=== PATIENT | female | born 1940 | race Two or more races ===

== ENCOUNTER 2021-10-09 22:23 | Emergency (ER) | payer OTHER ==
[~2021-10-09] VITALS: Ht 165.1 cm; Wt 68.0 kg
[2021-10-09 22:30] VITALS: BP 149/71
[2021-10-09] MEDS ORDERED: ACCU-CHEK COMFORT CURVE STRIP VI ONE (22:45)
[2021-10-09 23:37] LABS: Basophils # (auto) 0.1 10 ^3/uL (0-0.2); Basophils % (auto) 0.7 % (0.0-2.0); Eosinophils # (auto) 0.1 10 ^3/uL (0-0.8); Eosinophils % (auto) 0.7 % (0.0-7.0); Hematocrit 37.5 % (41.0-53.0); Hemoglobin 12.7 g/dL (13.5-17.5); Lymphocytes # (auto) 1.8 10 ^3/uL (0.4-5.4); Lymphocytes % (auto) 17.5 % (10.0-50.0); Mean Corpuscular Hemoglobin 29.9 pg (28.0-32.0); Mean Corpuscular Hgb Conc. 33.9 g/dL (32.0-36.0); Mean Corpuscular Volume 88.2 fL (80.0-100.0); Monocytes # (auto) 0.6 10 ^3/uL (0-1.3); Monocytes % (auto) 5.9 % (0.0-12.0); Neutrophils # (auto) 7.7 10 ^3/uL (1.6-8.6); Neutrophils % (auto) 75.2 % (37.0-80.0); Red Blood Cells 4.25 10^6/uL (4.5-5.90); Red Cell Distribution Width 16.2 % (11.8-14.3); White Blood Cell 10.2 10^3/uL (4.4-10.8)
[2021-10-09 23:56] LABS: Albumin 3.4 g/dL (3.4-5.0); Calcium 9.8 mg/dL (8.5-10.1); Potassium 4.3 mmol/L (3.5-5.1)
[2021-10-10 00:05] LABS: Lactic Acid w/Reflex 2.5 mmol/L (0.4-2.0)
[2021-10-10 00:13] LABS: BUN/Creatinine Ratio 11.1; Bilirubin, Total 0.4 mg/dL (0.2-1.0)
== END 2021-10-10 00:52 | disposition left against medical advice (07) ==
LOC: EDBD 22:23 → ER 22:27 → EDSEX 22:27 → ER 10-10 00:52
DX: R53.1 Weakness (principal); R42 Dizziness and giddiness; E11.9 Type 2 diabetes mellitus without complications; I10 Essential (primary) hypertension
CPT/HCPCS: 36415; 80053; 83605; 83880; 84484; 85025; 87040

== ENCOUNTER 2021-10-22 12:03 | Inpatient (IN) | payer OTHER ==
[~2021-10-22] VITALS: Ht 165.1 cm; Wt 63.7 kg
[2021-10-22] MEDS ORDERED: SODIUM CHLORIDE 0.9% 1,000 ML IV ONE (13:45)
[2021-10-22 14:12] LABS: Basophils # (auto) 0.1 10 ^3/uL (0-0.2); Basophils % (auto) 0.6 % (0.0-2.0); Eosinophils # (auto) 0 10 ^3/uL (0-0.8); Eosinophils % (auto) 0.2 % (0.0-7.0); Hematocrit 42.2 % (36.0-46.0); Hemoglobin 13.8 g/dL (12.2-16.2); Lymphocytes # (auto) 2.7 10 ^3/uL (0.4-5.4); Lymphocytes % (auto) 18.2 % (10.0-50.0); Mean Corpuscular Hemoglobin 28.7 pg (28.0-32.0); Mean Corpuscular Hgb Conc. 32.6 g/dL (32.0-36.0); Monocytes # (auto) 0.9 10 ^3/uL (0-1.3); Monocytes % (auto) 6.1 % (0.0-12.0); Neutrophils # (auto) 10.9 10 ^3/uL (1.6-8.6); Neutrophils % (auto) 74.9 % (37.0-80.0); Nucleated Red Blood Cells % 0.1 %; Red Cell Distribution Width 15.3 % (11.8-14.3); White Blood Cell 14.6 10^3/uL (4.4-10.8)
[2021-10-22 14:18] LABS: Urine Bacteria FEW /hpf (None Seen); Urine Blood Negative /uL (Negative); Urine Specific Gravity 1.017 (1.001-1.035); Urine WBC 1 /hpf (0 - 5)
[2021-10-22 14:25] LABS: Albumin 3.5 g/dL (3.4-5.0); Calcium 10.2 mg/dL (8.5-10.1); Potassium 4.9 mmol/L (3.5-5.1)
[2021-10-22 14:32] LABS: BUN/Creatinine Ratio 22.7; Bilirubin, Total 0.5 mg/dL (0.2-1.0); Total Protein 9.8 g/dL (6.4-8.2)
[2021-10-22] MEDS ORDERED: DexAMETHasone SOD PHOS 10MG/1ML VIAL INJ IV ONE (14:45)
[2021-10-22] MEDS ORDERED: AZITHROMYCIN 500MG/ 250ML 250 ML IV ONE (14:45)
[2021-10-22] MEDS ORDERED: cefTRIAXone 1GM/50ML D5W 50 ML IV ONE (14:45)
[2021-10-22] MEDS: MAGNESIUM SULFATE 1GM/100ML 100 ML IV SCH ×2 (18:01→18:28)
[2021-10-22] MEDS ORDERED: ACETAMINOPHEN 325 MG TAB PO PRN (18:45)
[2021-10-22] MEDS ORDERED: ALUM & MAG HYDROX-SIMETH LIQ(MAALOX) 30 ML PO PRN (18:45)
[2021-10-22] MEDS ORDERED: NITROGLYCERIN 0.4 MG SL TAB SL PRN (18:45)
[2021-10-22] MEDS ORDERED: MORPHINE SULFATE INJECTION 2 MG/ML SYRG IV PRN (18:45)
[2021-10-22] MEDS ORDERED: DOCUSATE SOD 100 MG CAP PO PRN (18:45)
[2021-10-22] MEDS ORDERED: DEXTROSE (50%) 50ML SYRG IV PRN (19:00)
[2021-10-22] MEDS: SOD CHL 0.45% 1,000 ML IV SCH (19:11)
[2021-10-22 19:22] LABS: Cholesterol 140 mg/dL (< 200)
[2021-10-22 19:24] LABS: HDL Cholesterol 50 mg/dL (40-59); LDL Cholesterol 68 mg/dL (< 100); Triglycerides 170 mg/dL (< 150)
[2021-10-22] MEDS: metroNIDAZOLE 500MG/100ML 100 ML IV SCH (21:10)
[2021-10-23] VITALS (7 sets, daily range): BP systolic 120–132; BP diastolic 67–80
[2021-10-23] MEDS: metroNIDAZOLE 500MG/100ML 100 ML IV SCH ×3 (05:53→18:37)
[2021-10-23] MEDS: SOD CHL 0.45% 1,000 ML IV SCH (05:53)
[2021-10-23] MEDS: InsuLIN REG 1unit/0.01ml Soln (100units/ml) SC SCH ×4 (06:01→18:00)
[2021-10-23] MEDS: ACCU-CHEK COMFORT CURVE STRIP VI SCH ×4 (06:02→18:00)
[2021-10-23 10:17] LABS: Protein, Urine 30.6 mg/dL (0.0-11.9)
[2021-10-23] MEDS: cefTRIAXone 1GM/50ML D5W 50 ML IV SCH (10:20)
[2021-10-23] MEDS: AZITHROMYCIN 500MG/ 250ML 250 ML IV SCH (10:21)
[2021-10-23] MEDS: SODIUM CHLORIDE 0.9% 1,000 ML IV SCH ×2 (10:26→19:45)
[2021-10-23] MEDS: ONDANSETRON HCL 4 MG/2 ML VIAL IV PRN (22:46)
[2021-10-24] VITALS (7 sets, daily range): BP systolic 117–136; BP diastolic 59–76
[2021-10-24] MEDS: ACCU-CHEK COMFORT CURVE STRIP VI SCH ×4 (00:22→17:36)
[2021-10-24] MEDS: InsuLIN REG 1unit/0.01ml Soln (100units/ml) SC SCH ×4 (00:24→17:43)
[2021-10-24] MEDS: ONDANSETRON HCL 4 MG/2 ML VIAL IV PRN ×5 (00:27→16:11)
[2021-10-24] MEDS: metroNIDAZOLE 500MG/100ML 100 ML IV SCH ×3 (02:53→17:36)
[2021-10-24] MEDS: HYDROcodone-ACET 5/325MG TAB PO PRN (05:39)
[2021-10-24] MEDS: SODIUM CHLORIDE 0.9% 1,000 ML IV SCH ×2 (05:40→15:45)
[2021-10-24 05:47] LABS: Basophils # (auto) 0 10 ^3/uL (0-0.2); Basophils % (auto) 0.4 % (0.0-2.0); Eosinophils # (auto) 0 10 ^3/uL (0-0.8); Eosinophils % (auto) 0.4 % (0.0-7.0); Hematocrit 36.8 % (36.0-46.0); Hemoglobin 12.7 g/dL (12.2-16.2); Lymphocytes # (auto) 2.2 10 ^3/uL (0.4-5.4); Lymphocytes % (auto) 23.9 % (10.0-50.0); Mean Corpuscular Hgb Conc. 34.6 g/dL (32.0-36.0); Mean Corpuscular Volume 86.7 fL (80.0-100.0); Monocytes # (auto) 0.7 10 ^3/uL (0-1.3); Monocytes % (auto) 7.9 % (0.0-12.0); Neutrophils # (auto) 6.1 10 ^3/uL (1.6-8.6); Neutrophils % (auto) 67.4 % (37.0-80.0); Nucleated Red Blood Cells % 0.1 %; Red Blood Cells 4.24 10^6/uL (4.0-5.20); White Blood Cell 9.1 10^3/uL (4.4-10.8)
[2021-10-24 06:07] LABS: Potassium 4.1 mmol/L (3.5-5.1)
[2021-10-24 06:17] LABS: BUN/Creatinine Ratio 30.1; Bilirubin, Total 0.3 mg/dL (0.2-1.0); Total Protein 8.1 g/dL (6.4-8.2)
[2021-10-24 06:18] LABS: Albumin 2.9 g/dL (3.4-5.0)
[2021-10-24] MEDS: MORPHINE SULFATE INJECTION 2 MG/ML SYRG IV PRN ×3 (09:27→22:31)
[2021-10-24] MEDS: AZITHROMYCIN 500MG/ 250ML 250 ML IV SCH (09:33)
[2021-10-24] MEDS: cefTRIAXone 1GM/50ML D5W 50 ML IV SCH (09:33)
[2021-10-24] MEDS: MAGNESIUM SULFATE 1GM/100ML 100 ML IV SCH ×2 (13:00→14:00)
[2021-10-25] MEDS: InsuLIN REG 1unit/0.01ml Soln (100units/ml) SC SCH ×2 (00:44→17:47)
[2021-10-25] MEDS: SODIUM CHLORIDE 0.9% 1,000 ML IV SCH ×3 (00:45→14:30)
[2021-10-25] MEDS: MORPHINE SULFATE INJECTION 2 MG/ML SYRG IV PRN (03:29)
[2021-10-25] MEDS: ONDANSETRON HCL 4 MG/2 ML VIAL IV PRN ×2 (03:30→10:25)
[2021-10-25] MEDS: metroNIDAZOLE 500MG/100ML 100 ML IV SCH ×2 (05:18→10:05)
[2021-10-25 05:22] VITALS: BP 130/77
[2021-10-25 08:00] VITALS: BP_SYST 120; BP_SYST 125; BP_DIAS 62; BP_DIAS 67
[2021-10-25 09:00] VITALS: BP 148/73
[2021-10-25] MEDS: cefTRIAXone 1GM/50ML D5W 50 ML IV SCH (10:20)
[2021-10-25] MEDS: AZITHROMYCIN 500MG/ 250ML 250 ML IV SCH (10:25)
[2021-10-25] MEDS: HYDROcodone-ACET 5/325MG TAB PO PRN (10:26)
[2021-10-25] MEDS: ACCU-CHEK COMFORT CURVE STRIP VI SCH ×3 (12:00→17:47)
[2021-10-25 12:49] VITALS: BP 142/75
[2021-10-25] MEDS ORDERED: BISACODYL 10 MG RECT SUPP PR ONE (14:30)
[2021-10-25] MEDS ORDERED: LACTULOSE 20Gm/30ML SOLN PO PRN (14:30)
[2021-10-25 15:51] LABS: BUN/Creatinine Ratio 16.5; Calcium 8.3 mg/dL (8.5-10.1); Potassium 3.9 mmol/L (3.5-5.1)
[2021-10-25 16:01] LABS: Folate (Folic Acid) 10.34 ng/mL (5.38-24)
[2021-10-25 16:41] VITALS: BP 142/62
[2021-10-25] MEDS ORDERED: BISACODYL 10 MG RECT SUPP PR SCH (18:00)
[2021-10-25 20:30] VITALS: BP 128/77
[2021-10-25] MEDS: METOCLOPRAMIDE HCL 5MG/ml INJ 2ml VIAL IV SCH (22:08)
[2021-10-26] MEDS: ACCU-CHEK COMFORT CURVE STRIP VI SCH ×3 (00:20→12:00)
[2021-10-26] MEDS: InsuLIN REG 1unit/0.01ml Soln (100units/ml) SC SCH ×3 (00:21→12:00)
[2021-10-26] MEDS: ONDANSETRON HCL 4 MG/2 ML VIAL IV PRN (02:11)
[2021-10-26] MEDS ORDERED: PROMETHAZINE HCL 25 MG/ML 1ML IV PRN (02:45)
[2021-10-26 05:00] VITALS: BP 147/70
[2021-10-26] MEDS: SODIUM CHLORIDE 0.9% 1,000 ML IV SCH (05:31)
[2021-10-26] MEDS: METOCLOPRAMIDE HCL 5MG/ml INJ 2ml VIAL IV SCH ×2 (06:26→13:22)
[2021-10-26 09:00] VITALS: BP 137/71
[2021-10-26] MEDS: cefTRIAXone 1GM/50ML D5W 50 ML IV SCH (10:09)
[2021-10-26] MEDS ORDERED: BISACODYL 10 MG RECT SUPP PR ONE (11:30)
[2021-10-26] MEDS ORDERED: LACTULOSE 20Gm/30ML SOLN PO ONE (11:30)
[2021-10-26] MEDS ORDERED: FAMO20TA10 PO (11:31)
[2021-10-26] MEDS ORDERED: MEGE20TA5 PO (11:31)
[2021-10-26] MEDS ORDERED: ONDA-144 PO (11:31)
[2021-10-26] MEDS ORDERED: METF-370 PO (11:34)
[2021-10-26 13:00] VITALS: BP_SYST 140; BP_SYST 151; BP_DIAS 80; BP_DIAS 81
[2021-10-26 16:10] VITALS: BP 140/80
[2021-10-26 17:10] VITALS: BP 149/75
== END 2021-10-26 18:00 | disposition home health service (06) | DRG 682 ==
LOC: EDBD 12:03 → ER 12:03 → TELE 18:39 → TELE-CENTR 10-23 01:25
PROVIDERS: ADMIT Family Medicine; ATTEND Hospitalist
DX: N17.9 Acute kidney failure, unspecified (principal); J18.9 Pneumonia, unspecified organism; E87.1 Hypo-osmolality and hyponatremia; N18.4 Chronic kidney disease, stage 4 (severe); K29.70 Gastritis, unspecified, without bleeding; K59.00 Constipation, unspecified; E11.21 Type 2 diabetes mellitus with diabetic nephropathy; E83.42 Hypomagnesemia; E88.09 Other disorders of plasma-protein metabolism, not elsewhere classified; E11.65 Type 2 diabetes mellitus with hyperglycemia; E11.22 Type 2 diabetes mellitus with diabetic chronic kidney disease; F03.90 Unspecified dementia, unspecified severity, without behavioral disturbance, psychotic disturbance, mood disturbance, and anxiety; I12.9 Hypertensive chronic kidney disease with stage 1 through stage 4 chronic kidney disease, or unspecified chronic kidney disease; S91.301A Unspecified open wound, right foot, initial encounter; X58.XXXA Exposure to other specified factors, initial encounter; L89.90 Pressure ulcer of unspecified site, unspecified stage; Z20.822 Contact with and (suspected) exposure to COVID-19; Z83.3 Family history of diabetes mellitus; Z90.49 Acquired absence of other specified parts of digestive tract; Y93.89 Activity, other specified; Y92.89 Other specified places as the place of occurrence of the external cause; Y99.8 Other external cause status; Z74.01 Bed confinement status
CPT/HCPCS: 36415; 70450; 71045; 73610; 74018; 76775; 80048; 80053; 80061; 81001; 82306; 82570; 82607; 82746; 82962; 83036; 83605; 83735; 83970; 84100; 84156; 84300; 84443; 84484; 85025; 85379; 86141; 87040; 87426; 93005; 96361; 96365; 96367; 96375; 97110; 97116; 97163; 97530; G0378; J0696; J1100; J1815; J2405; J3490